=== PATIENT | male | born 1940 | race Caucasian/White ===

== ENCOUNTER → 2018-01-29 | Outpatient (CLI) | payer MEDICARE ==
[2018-01-29 13:46] LABS: BASO % 0.8 %; BASO ABS # 0.05 K/uL (0-0.2); EOS % 1.2 %; EOS ABS # 0.08 K/uL (0-0.5); HEMATOCRIT 45.8 % (42-52); HEMOGLOBIN 15.7 g/dL (14.0-18.0); IG# 0.01 K/uL (0.00-0.02); LYMPH % 26.2 %; LYMPH ABS # 1.72 K/uL (1.2-3.4); MEAN CELL VOLUME 89.3 fL (80-100); MEAN CORPUSCULAR HEMOGLOBIN 30.6 pg (25-34); MEAN CORPUSCULAR HGB CONC 34.3 g/dl (32-36); MEAN PLATELET VOLUME 11.3 fL (7.4-10.4); MONO % 8.2 %; MONO ABS # 0.54 K/uL (0.11-0.59); NEUT % 63.4 %; NEUT ABS # 4.17 K/uL (1.4-6.5); PLATELET COUNT 223 K/uL (130-400); RED CELL DISTRIBUTION WIDTH CV 12.9 % (11.5-14.5); RED CELL DISTRIBUTION WIDTH SD 42.1 fL (36.4-46.3); WHITE BLOOD COUNT 6.57 K/uL (4.8-10.8)
[2018-01-29 14:16] LABS: ALT/SGPT 32 U/L (12-78); AST/SGOT 18 U/L (15-37); BLOOD UREA NITROGEN 10 mg/dl (7-18); CALCIUM 9.2 mg/dl (8.5-10.1); CARBON DIOXIDE 30 mmol/L (21-32); CREATININE 0.94 mg/dl (0.60-1.40); GLUCOSE 111 mg/dl (70-99); POTASSIUM 4.4 mmol/L (3.5-5.1); SODIUM 137 mmol/L (136-145)
[2018-01-29 14:27] LABS: ALKALINE PHOSPHATASE 70 U/L (45-117); CHOLESTEROL 146 mg/dl (0-200); LDL CHOLESTEROL CALCULATED 71 mg/dl; TOTAL PROTEIN 8.1 gm/dl (6.4-8.2)
== END | disposition home or self-care (01) ==
LOC: C.LABBC 10:44
PROVIDERS: ATTEND Internal Medicine
DX: Z00.00 Encounter for general adult medical examination without abnormal findings (principal); F41.1 Generalized anxiety disorder; M17.11 Unilateral primary osteoarthritis, right knee; N40.0 Benign prostatic hyperplasia without lower urinary tract symptoms; R73.01 Impaired fasting glucose; R03.0 Elevated blood-pressure reading, without diagnosis of hypertension

== ENCOUNTER 2024-08-05 15:52 | Observation (INO) ==
[2024-08-05 16:59] LABS: Basophils # (auto) 0.04 K/uL (0.00-0.20); Basophils % (auto) 0.4 %; Eosinophils # (auto) 0.08 K/uL (0.00-0.50); Eosinophils % (auto) 0.7 %; Hematocrit (blood only) 45.1 % (42.0-52.0); Hemoglobin 15.6 g/dl (14.0-18.0); Immature Granulocytes # (auto) 0.05 K/uL (0.01-0.20); Immature Granulocytes % (auto) 0.5 %; Lymphocytes # (auto) 1.43 K/uL (1.20-3.40); Lymphocytes % (auto) 13.2 %; Mean Corpuscular Hemoglobin 29.2 pg (25.0-34.0); Mean Corpuscular Hgb Conc 34.6 g/dL (32.0-36.0); Mean Corpuscular Volume 84.3 fL (80.0-100.0); Mean Platelet Volume 10.8 fL (9.4-12.4); Monocytes # (auto) 0.75 K/uL (0.11-0.59); Monocytes % (auto) 6.9 %; Neutrophils # (auto) 8.48 K/uL (1.40-6.50); Neutrophils % (auto) 78.3 %; Platelet Count 267 K/uL (130-400); RDW Coefficient of Variation 12.5 % (11.5-14.5); RDW Standard Deviation 38.3 fL (36.4-46.3); Red Blood Count 5.35 M/uL (4.70-6.10); White Blood Count 10.83 K/ul (4.8-10.8)
[2024-08-05 17:17] LABS: Albumin Globulin Ratio 1.3 (0.9-2); Albumin Level 4.3 gm/dl (3.4-5.0); BUN Creatinine Ratio 24.7 (10-20); Bilirubin,Total 0.8 mg/dl (0.2-1.0); Calcium 9.9 mg/dl (8.6-10.3); Creatinine Clr Calc Pharmacy 83.6 ml/min; Est GFR (African American) 95.9 ml/min; Est GFR (Non-African American) 82.8 ml/min; Globulin 3.2 gm/dl (2.5-4.0); Potassium 3.8 mmol/L (3.5-5.1); Total Protein 7.5 gm/dl (6.0-8.3)
--- NOTE | 2024-08-05 18:37 | Emergency Department Note ---
Impression & Plan Generalized weakness ED Provider Note NAME: CHRISTINE UNDERWOOD AGE: 84 SEX: Male INFORMANT: Patient and ED PROVIDER(S): Giovanny Campbell MD CHIEF COMPLAINT: Generalized weakness PLAN: Disposition: Admitted Outpatient prescription management: none Referral: None MEDICAL DECISION MAKING: Patient presented emerged from complaining of generalized weakness. He has not been eating well for the last 2 weeks and has had weight loss. He had a nonfocal neurologic examination. His workup revealed a very slight leukocytosis on CBC. His oropharyngeal examination revealed no significant findings concerning for active infection. He had an unremarkable ECG. Chest x-ray was negative. Chemistry panel revealed slight hyperglycemia but nothing significant. Cardiac troponin was negative. Patient had negative orthostatic testing. He was able to ambulate. Lyme testing was negative. Patient and friend were very concerned about his condition. They felt like he was not well to go home. Given his generalized weakness, lack of oral intake, and recent extraction I discussed further management in the hospital as the patient does not feel comfortable going home. Consultation was made with Dr. Henning of the hospitalist service. Patient was evaluated in the ER and admitted for further management. Care/management discussed with: disability manager Level of care consideration(s): After review of the information above and other included data, I feel the patient requires escalation of care to admission Triage Nursing notes: reviewed and agree them. Vital Signs: reviewed and remarkable for no significant abnormalities Additional History obtained from: none Chronic Medical/Social Conditions affecting care: Diabetes Prior/ Outside/ External records reviewed: none Differential Diagnosis: Infection, dehydration, metabolic abnormality, hypo/hyperglycemia, electrolyte disturbance, anemia, hypoxia, cardiac sources, intracerebral event, toxicologic, neurologic, as well as other pathologies. Diagnostics, independently interpreted by me: ECG: Twelve-lead ECG reveals normal sinus rhythm at 92 beats per minute. No evidence of pericarditis, ischemia, ectopy, or dysrhythmia. Cardiac Monitoring: Cardiac monitoring ordered by me: The patient was placed on continuous cardiac monitoring and observed. It revealed a normal sinus rhythm at 76 beats per minute without ectopy or evidence of dysrhythmia. Medical decision rules: none Imaging studies: Chest x-ray. Findings: A chest x-ray was performed and revealed no pneumothorax, effusion, infiltrate, pulmonary edema, free air under the diaphragm, or wide mediastinum. Impression: No acute disease. HPI: 84 year old Male arrives for evaluation of weakness. This started over 2 weeks ago and is worsening. The patient also notes the following associated symptoms, poor appetite, weight loss. Been going on since dealing with an abscessed upper tooth on the right. Was on abx. The patient has found relieving factors. Current pain is rated as mild and improved from the extraction. Pt denies LOC, headache, fevers, chills, diaphoresis, visual changes, neck pain, chest pain, breathing difficulties, nausea, vomiting, abdominal pain, back pain, melena, hematochezia, urinary symptoms, numbness, lymphadenopathy, rash, or other complaints. . PAST MEDICAL HISTORY: See Below, DM, HTN PAST SURGICAL HISTORY: See Below, SOCIAL HISTORY: See Below, HOME MEDICATIONS: See Below ALLERGIES: See Below VITALS: See Below PHYSICAL EXAMINATION: GENERAL: Awake, tired-appearing, in no distress HENT: Normocephalic, atraumatic. Oropharynx unremarkable. EYES: Normal conjunctiva. Sclera non-icteric. NECK: Inspection normal. Non-tender. Supple. No nuchal rigidity. FROM. No masses. RESPIRATORY: Clear to auscultation. No wheezes. No rales. Normal respiratory effort. CARDIAC: Normal rate. Normal rhythm. No murmurs. No rubs. Extremities warm and well perfused. Pulses equal. No JVD. GI: Soft, non-distended. No tenderness to palpation. No rebound or guarding. No masses. RECTAL: Deferred. MUSCULOSKELETAL: Atraumatic. Chest examination reveals no tenderness. The back is symmetrical on inspection without obvious abnormality. There is no CVA tenderness to palpation. No joint edema. LOWER EXTREMITIES: Calves are equal size bilaterally and non-tender. No edema. Chronic venous discoloration. NEURO: Normal sensorium. No sensory or motor deficits noted. SKIN: No rash or jaundice noted. PROCEDURES: none CRITICAL CARE: none OBSERVATION NOTE: none Past Med/Surg History Problem List (Updated 08/06/24 @ 01:50 by Giovanny Campbell MD) Generalized weakness (Acute) Weakness Type 2 diabetes mellitus Colon polyps History of colon polyps large intestine benign HTN (hypertension) (Chronic) LVH (left ventricular hypertrophy) (Chronic) Primary osteoarthritis of right knee (Chronic) Anxiety (Chronic) Medical History (Updated 08/06/24 @ 01:50 by Giovanny Campbell MD) History of skin cancer Preoperative examination Tick bite History of neoplasm of uncertain behavior of skin History of rheumatic fever Diastasis, muscle Hypertension Surgical History History of phacoemulsification of cataract of both eyes with intraocular lens implantation History of excision of lesion neck benign History of surgery FINGER SURGERY Family History Father , At age 94 Alzheimer disease Mother Heart disease Sister , Age 64 Lung cancer Tobacco use Denies family history of Ovarian cancer Prostate cancer Diabetes Myocardial infarction Breast cancer Colorectal cancer Hypertension Stroke Social History Smoking Status: Never smoker Tobacco Type: Cigarettes Age Started Using Tobacco: 27; Age Quit Using Tobacco: 45; packs per day: 0.25; Cigarettes Per Day: QUIT >20 YEARS AGO; Second Hand Exposure: No; Do You Dip or Chew Tobacco: No; Hx Alcohol Use: No Hx Substance Use: No Preferred Language: Bulgarian Communication Ability: Effective Visual Impairment: Limited Hearing Ability: Hard of Hearing Certified Green Building Engineer Required: No Beliefs That Will Affect Care: None marital status: Current Living Situation: Spouse current occupational status: retired How many Children do You have: 1 Feels Safe at Home: Yes Safety Concerns: Feels Safe At This Time Childhood Exposure to Second-Hand Smoke: No Diet: regular caffeine: Yes Dental Care, Regularly: Yes Physical Activity Frequency: Daily Physical Activity Frequency Comment: Regularly Seatbelt Use: always Sunscreen Use: No Assistive Devices: Denture - Upper, Denture - Lower and Glasses Allergies Allergies Allergy/AdvReac Type Severity Reaction Status Date / Time No Known Allergies Allergy Verified 08/01/24 13:23 Home Meds Home Medications Medication Instructions Recorded Confirmed multivitamin 1 cap PO DAILY 01/06/19 08/01/24 cetirizine 10 mg capsule (Zyrtec) 10 mg PO DAILY PRN 12/11/23 08/01/24 amlodipine 5 mg tablet 5 mg PO DAILY 08/06/24 08/06/24 Previous Rx's Medication Instructions Recorded escitalopram oxalate 10 mg tablet See Rx Instructions .Route 07/30/24 .COMPLEX #90 tabs amoxicillin 875 mg-potassium 1 tab PO BID 5 days #10 tabs 08/01/24 clavulanate 125 mg tablet metformin 500 mg tablet,extended See Rx Instructions .Route 08/05/24 release 24 hr .COMPLEX #90 tabs Results & Data (ED) Vital Signs Vital Signs - 24 hr 08/05/24 16:13 08/05/24 18:21 08/05/24 19:12 Temperature 37.0 C Temperature Source Oral Pulse Rate - Lying 78 Pulse Rate - Sitting 82 Pulse Rate - Standing 87 Pulse Rate 92 H Pulse Rate [Apical] 70 Pulse Rhythm Regular Pulse Strength Normal Respiratory Rate 18 Respiratory Effort / Characteristics Non-Labored Respiratory Depth Normal Respiratory Pattern Regular Blood Pressure - Lying 125/73 Blood Pressure - Sitting 151/88 H Blood Pressure- Standing 152/89 H Blood Pressure 125/88 Blood Pressure [Right Arm] 122/76 Blood Pressure Mean 100 Blood Pressure Mean [Right Arm] 91 Blood Pressure Position Sitting Pulse Oximetry 98 94 Oxygen Delivery Method Room Air Room Air Sepsis Recent Fever Within 48 Hours Yes Sepsis New/Unexplained Change in Mental Status No Sepsis Action Taken by Nursing No Action Required 08/05/24 19:14 08/05/24 19:30 08/05/24 20:30 Temperature Temperature Source Pulse Rate - Lying Pulse Rate - Sitting Pulse Rate - Standing Pulse Rate Pulse Rate [Apical] 78 Pulse Rhythm Pulse Strength Respiratory Rate 18 17 Respiratory Effort / Characteristics Respiratory Depth Respiratory Pattern Blood Pressure - Lying Blood Pressure - Sitting Blood Pressure- Standing Blood Pressure Blood Pressure [Right Arm] 142/80 H 135/78 Blood Pressure Mean Blood Pressure Mean [Right Arm] 100 97 Blood Pressure Position Pulse Oximetry 94 92 Oxygen Delivery Method Room Air Room Air Room Air Sepsis Recent Fever Within 48 Hours Sepsis New/Unexplained Change in Mental Status Sepsis Action Taken by Nursing 08/05/24 21:30 Temperature Temperature Source Pulse Rate - Lying Pulse Rate - Sitting Pulse Rate - Standing Pulse Rate Pulse Rate [Apical] 78 Pulse Rhythm Pulse Strength Respiratory Rate 18 Respiratory Effort / Characteristics Non-Labored Respiratory Depth Normal Respiratory Pattern Regular Blood Pressure - Lying Blood Pressure - Sitting Blood Pressure- Standing Blood Pressure Blood Pressure [Right Arm] 140/87 Blood Pressure Mean Blood Pressure Mean [Right Arm] 104 Blood Pressure Position Pulse Oximetry 93 Oxygen Delivery Method Room Air Sepsis Recent Fever Within 48 Hours Sepsis New/Unexplained Change in Mental Status Sepsis Action Taken by Nursing Laboratory Data 08/05/24 16:41 08/05/24 16:41 Lab Results 08/05/24 08/05/24 Range/Units 16:41 19:17 WBC 10.83 H (4.8-10.8) K/ul RBC 5.35 (4.70-6.10) M/uL Hgb 15.6 (14.0-18.0) g/dl Hct 45.1 (42.0-52.0) % MCV 84.3 (80.0-100.0) fL MCH 29.2 (25.0-34.0) pg MCHC 34.6 (32.0-36.0) g/dL RDW Std Deviation 38.3 (36.4-46.3) fL RDW Coeff of Wero 12.5 (11.5-14.5) % Plt Count 267 (130-400) K/uL MPV 10.8 (9.4-12.4) fL Immature Gran % (Auto) 0.5 % Neut % (Auto) 78.3 % Lymph % (Auto) 13.2 % Butts % (Auto) 6.9 % Eos % (Auto) 0.7 % Baso % (Auto) 0.4 % Neut # (Auto) 8.48 H (1.40-6.50) K/uL Lymph # (Auto) 1.43 (1.20-3.40) K/uL Butts # (Auto) 0.75 H (0.11-0.59) K/uL Eos # (Auto) 0.08 (0.00-0.50) K/uL Baso # (Auto) 0.04 (0.00-0.20) K/uL Immature Gran # (Auto) 0.05 (0.01-0.20) K/uL Sodium 140 (136-145) mmol/L Potassium 3.8 (3.5-5.1) mmol/L Chloride 103 (98-107) mmol/L Carbon Dioxide 29 (21-32) mmol/L Anion Gap 8 (3-11) BUN 20 (6-23) mg/dl Creatinine 0.81 (0.6-1.4) mg/dl Est Cr Clr Drug Dosing 83.6 ml/min Est GFR ( Amer) 95.9 ml/min Est GFR (Non-Af Amer) 82.8 ml/min BUN/Creatinine Ratio 24.7 H (10-20) Glucose 143 H (70-99(Fasting)) mg/dl Calcium 9.9 (8.6-10.3) mg/dl Magnesium 2.1 (1.7-2.4) mg/dl Total Bilirubin 0.8 (0.2-1.0) mg/dl AST 23 (13-39) U/L ALT 38 (7-52) U/L Alkaline Phosphatase 47 (34-104) U/L Troponin I High Sens 3.5 (0-20) pg/ml Total Protein 7.5 (6.0-8.3) gm/dl Albumin 4.3 (3.4-5.0) gm/dl Globulin 3.2 (2.5-4.0) gm/dl Albumin/Globulin Ratio 1.3 (0.9-2) Adenovirus (PCR) Not Detected (NotDetected) B. pertussis DNA (PCR) Not Detected (NotDetected) B.parapertussis DNA PCR Not Detected (NotDetected) Lyme Disease Screen Negative (Negative) C. pneumoniae DNA (PCR) Not Detected (NotDetected) Coronavirus OC43 (PCR) Not Detected (NotDetected) Coronavirus HKU1 (PCR) Not Detected (NotDetected) Coronavirus 229E (PCR) Not Detected (NotDetected) SARS-CoV-2 (PCR) Not Detected (NotDetected) Coronavirus NL63 (PCR) Not Detected (NotDetected) Human Metapneumovir PCR Not Detected (NotDetected) Influenza Type A (PCR) Not Detected (NotDetected) Influenza Type B (PCR) Not Detected (NotDetected) M. pneumoniae (PCR) Not Detected (NotDetected) Parainfluenza 1 (PCR) Not Detected (NotDetected) Parainfluenza 2 (PCR) Not Detected (NotDetected) Parainfluenza 3 (PCR) Not Detected (NotDetected) Parainfluenza 4 (PCR) Not Detected (NotDetected) RSV (PCR) Not Detected (NotDetected) Entero/Rhino (PCR) Not Detected (NotDetected) Administered Medications Lactated Ringer's (Lr) 1,000 mls @ 80 mls/hr IV .[id number] [facility] Stop: 08/07/24 00:44 Last Admin: 08/05/24 23:36 Dose: 80 mls/hr Documented By: TONG Discontinued Medications Sodium Chloride (Nss) 1,000 mls @ 999 mls/hr IV .Q1H1M ONE Stop: 08/05/24 19:37 Last Infusion: 08/05/24 21:04 Dose: Infused Documented By: Admin: 08/05/24 18:46 Dose: 999 mls/hr Documented By: CARMEN Sodium Chloride (Nss) 1,000 mls @ 125 mls/hr IV .Q8H JUSTIN Stop: 09/04/24 18:44 Last Infusion: 08/05/24 23:40 Dose: Infused Documented By: Infusion: 08/05/24 23:39 Dose: 0 mls/hr Documented By: Admin: 08/05/24 21:04 Dose: 125 mls/hr Documented By: DELTA Ioversol (Optiray 320 100ml) 93 ml IV ONCE ONE Stop: 08/05/24 22:30 Last Admin: 08/05/24 22:29 Dose: 93 ml Documented By: SHANNON Imaging Data Radiologist's Impression: Face CT 08/05/24 22:02 Exam(s): CT FACIAL With Contrast IV Amt: 92 cc opti 320 EXAM: CT Head and Maxillofacial With Intravenous Contrast CLINICAL HISTORY: Reason for exam: malaise s/p right maxillary tooth extraction. TECHNIQUE: Axial computed tomography images of the head/brain and face with intravenous contrast. Automated exposure control was utilized for the study. A dose lowering technique was utilized adhering to the principles of ALARA. CONTRAST: Patient received 92 cc opti 320 of IV contrast COMPARISON: No relevant prior studies available. FINDINGS: Brain: Unremarkable. No hemorrhage. No edema. Normal enhancement. Ventricles: Unremarkable. No ventriculomegaly. Bones/joints: No acute fracture. There is a recent extraction of tooth #4. 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 Soft tissues: Unremarkable. Sinuses: Chronic right ethmoid sinusitis. No acute sinusitis. Mastoid air cells: Unremarkable as visualized. No mastoid effusion. Orbits: Unremarkable as visualized. IMPRESSION: Status post extraction of tooth #4 with expected postsurgical changes. 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 Recommend MRI of the cervical spine to evaluate for myelopathy. Electronically signed by: Mayte Hagen MD 08/06/24 00:58 AM Discharge Plan Visit Data Chief Complaint: Illness Stated Complaint: TOOTH REMOVAL,INFECTION ED Provider: Giovanny Campbell Discharge Problem: Generalized weakness Patient Disposition: Admitted As Inpatient Discharge Instructions Interventions: ED Discharge Assessment Last Done: 08/05/24 23:00
[2024-08-05] MEDS: SODIUM CHLORIDE 0.9% 1,000 ML IV ONE (18:46)
[2024-08-05 18:55] LABS: Magnesium 2.1 mg/dl (1.7-2.4)
[2024-08-05 19:03] LABS: Troponin I High Sensitivity 3.5 pg/ml (0-20)
[2024-08-05 20:44] LABS: Adenovirus PCR Not Detected (NotDetected); Bordetella parapertussis PCR Not Detected (NotDetected); Bordetella pertussis PCR Not Detected (NotDetected); Chlamydia pneumoniae PCR Not Detected (NotDetected); Coronavirus 229E PCR Not Detected (NotDetected); Coronavirus CoV-2 (COVID19)PCR Not Detected (NotDetected); Coronavirus HKU1 PCR Not Detected (NotDetected); Coronavirus NL63 PCR Not Detected (NotDetected); Coronavirus OC43PCR Not Detected (NotDetected); Human Metapneumovirus PCR Not Detected (NotDetected); Influenza A PCR Not Detected (NotDetected); Influenza B PCR Not Detected (NotDetected); Mycoplasma pneumoniae PCR Not Detected (NotDetected); Parainfluenza Virus 1 PCR Not Detected (NotDetected); Parainfluenza Virus 2 PCR Not Detected (NotDetected); Parainfluenza Virus 3 PCR Not Detected (NotDetected); Parainfluenza Virus 4 PCR Not Detected (NotDetected); Respiratory Syncytial VirusPCR Not Detected (NotDetected); Rhinovirus/Enterovirus PCR Not Detected (NotDetected)
[2024-08-05] MEDS: SODIUM CHLORIDE 0.9% 1,000 ML IV SCH (21:04)
--- NOTE | 2024-08-05 22:06 | History & Physical Report ---
Date of Service August 05, 2024 Assessment & Plan (1) Weakness: Plan: 84yo male with recent dental infection s/p antibiotics, s/p tooth extraction presenting from home with 2 weeks of progressive generalized weakness and decreased oral intake. Unclear etiology. Patient with mild leukocytosis with neutrophil predominance. Remainder of workup is unremarkable. -Observation to medical -Check CT face - ?infection or complication from recent extraction -Check UA -Gentle hydration with LR at 80mL/hr (2) Type 2 diabetes mellitus: Plan: Chronic -Check HgbA1C -ISS - goal blood sugar 110 - 140 (3) HTN (hypertension): Plan: Chronic -Continue Amlodipine History of Present Illness Chief Complaint: weakness, poor appetite and decreased oral intake Primary Care Provider: DO Yomi Garcia Edmundo is an 84yo male with history of HTN, DM presenting with poor appetite and decreased oral intake. Patient reports that earlier this month 07/26/24 he lost a filling and developed a toothache right maxillary tooth. He was taking antibiotics - Augmentin. Had an extraction on 07/28/24. He had severe pain in his face, jaw, head and neck as well as significant swelling following the extraction. His symptoms have been steadily improving - still has some pain in his face. He reports no pain at the extraction site. Over the last two weeks he has been experiencing poor appetite and decreased oral intake. He reports that he feels a little bit hungry but does not have the energy to eat. He is able to chew without pain or difficulty and reports that he is able to swallow without dysphagia or odynophagia. No abdominal pain, nausea, vomiting or diarrhea. He has only been eating pudding and applesauce and Ensure over the last two weeks. Also with progressive generalized weakness, chills. He reports he is having a difficult time taking care of himself. Prior to his dental infection he was active and independent - he lives at home with his elderly and cares for her and his dog. He also manages the yard and property. He denies headache, visual changes or pain with eye movement at present (he did have some pain with eye movement earlier in the week). He denies throat pain or swelling or difficulty swallowing. No neck stiffness. No chest pain, palpitations, cough, SOB, abdominal pain, nausea, vomiting or diarrhea. No urinary complaints. Allergies Allergy/AdvReac Type Severity Reaction Status Date / Time No Known Allergies Allergy Verified 08/01/24 13:23 Home Medications Medication Instructions Recorded Confirmed Type multivitamin 1 cap PO DAILY 01/06/19 08/01/24 History cetirizine 10 mg capsule (Zyrtec) 10 mg PO DAILY PRN 12/11/23 08/01/24 History escitalopram oxalate 10 mg tablet See Rx Instructions .Route 07/30/24 08/06/24 Rx .COMPLEX #90 tabs amoxicillin 875 mg-potassium 1 tab PO BID 5 days #10 tabs 08/01/24 08/01/24 Rx clavulanate 125 mg tablet metformin 500 mg tablet,extended See Rx Instructions .Route 08/05/24 08/06/24 Rx release 24 hr .COMPLEX #90 tabs amlodipine 5 mg tablet 5 mg PO DAILY 08/06/24 08/06/24 History Past Med/Surg History Problem List (Updated 08/06/24 @ 00:46 by Salma Henning DO) Weakness Type 2 diabetes mellitus Colon polyps History of colon polyps large intestine benign HTN (hypertension) (Chronic) LVH (left ventricular hypertrophy) (Chronic) Primary osteoarthritis of right knee (Chronic) Anxiety (Chronic) Medical History (Updated 08/06/24 @ 00:46 by Salma Henning DO) History of skin cancer Preoperative examination Tick bite History of neoplasm of uncertain behavior of skin History of rheumatic fever Diastasis, muscle Hypertension Surgical History History of phacoemulsification of cataract of both eyes with intraocular lens implantation History of excision of lesion neck benign History of surgery FINGER SURGERY Family History Father , At age 94 Alzheimer disease Mother Heart disease Sister , Age 64 Lung cancer Tobacco use Denies family history of Ovarian cancer Prostate cancer Diabetes Myocardial infarction Breast cancer Colorectal cancer Hypertension Stroke Social History Smoking Status: Never smoker Tobacco Type: Cigarettes Age Started Using Tobacco: 27; Age Quit Using Tobacco: 45; packs per day: 0.25; Cigarettes Per Day: QUIT >20 YEARS AGO; Second Hand Exposure: No; Do You Dip or Chew Tobacco: No; Hx Alcohol Use: No Hx Substance Use: No Preferred Language: Mongolian Communication Ability: Effective Visual Impairment: Limited Hearing Ability: Hard of Hearing Authorizer Required: No Beliefs That Will Affect Care: None marital status: Current Living Situation: Spouse current occupational status: retired How many Children do You have: 1 Feels Safe at Home: Yes Safety Concerns: Feels Safe At This Time Childhood Exposure to Second-Hand Smoke: No Diet: regular caffeine: Yes Dental Care, Regularly: Yes Physical Activity Frequency: Daily Physical Activity Frequency Comment: Regularly Seatbelt Use: always Sunscreen Use: No Assistive Devices: Denture - Upper, Denture - Lower and Glasses Review of Systems Review of Systems: All systems reviewed & are unremarkable except as noted in HPI & below Physical Exam Physical Exam: General: patient resting comfortably, NAD, non-toxic in appearance, AA&O x 4 Skin: warm, dry, intact, no rashes or lesions HEENT: NC/AT, PERRL, EOMI, anicteric sclera, conjunctiva without injection, external ear normal to inspection and nontender, nares patent, moist mucus membranes, dentition intact, no oropharyngeal lesions, neck supple, trachea midline, no LAD, no thyromegaly, no JVD Heart: +S1/S2, regular, no m/r/g Lungs: equal air entry bilaterally, no rales/rhonchi/wheezes Abd: +BS, soft, NT/ND, no masses/organomegaly/ascites Ext: warm, 2+ pulses in UE/LE bilaterally, no clubbing/cyanosis or edema Neuro: nonfocal, patient AA&O x 4, speech intact, no facial droop, moving all extremities on command with equal strength 5/5 Results & Data Results & Data Vital Signs (Past 12 Hours) Vital Signs Temp Pulse Pulse Resp BP BP Pulse Ox 08/05/24 21:30 78 18 140/87 93 08/05/24 20:30 78 17 135/78 92 08/05/24 19:30 18 142/80 H 94 08/05/24 19:14 08/05/24 18:21 70 122/76 94 08/05/24 16:13 37.0 C 92 H 18 125/88 98 O2 Del Method 08/05/24 21:30 Room Air 08/05/24 20:30 Room Air 08/05/24 19:30 Room Air 08/05/24 19:14 Room Air 08/05/24 18:21 Room Air 08/05/24 16:13 Room Air Laboratory Results Laboratory Results WBC 10.83 K/ul (4.8-10.8) H 08/05/24 16:41 RBC 5.35 M/uL (4.70-6.10) 08/05/24 16:41 Hgb 15.6 g/dl (14.0-18.0) 08/05/24 16:41 Hct 45.1 % (42.0-52.0) 08/05/24 16:41 MCV 84.3 fL (80.0-100.0) 08/05/24 16:41 MCH 29.2 pg (25.0-34.0) 08/05/24 16:41 MCHC 34.6 g/dL (32.0-36.0) 08/05/24 16:41 RDW Std Deviation 38.3 fL (36.4-46.3) 08/05/24 16:41 RDW Coeff of Wero 12.5 % (11.5-14.5) 08/05/24 16:41 Plt Count 267 K/uL (130-400) 08/05/24 16:41 MPV 10.8 fL (9.4-12.4) 08/05/24 16:41 Immature Gran % (Auto) 0.5 % 08/05/24 16:41 Neut % (Auto) 78.3 % 08/05/24 16:41 Lymph % (Auto) 13.2 % 08/05/24 16:41 [place] % (Auto) 6.9 % 08/05/24 16:41 Eos % (Auto) 0.7 % 08/05/24 16:41 Baso % (Auto) 0.4 % 08/05/24 16:41 Neut # (Auto) 8.48 K/uL (1.40-6.50) H 08/05/24 16:41 Lymph # (Auto) 1.43 K/uL (1.20-3.40) 08/05/24 16:41 [place] # (Auto) 0.75 K/uL (0.11-0.59) H 08/05/24 16:41 Eos # (Auto) 0.08 K/uL (0.00-0.50) 08/05/24 16:41 Baso # (Auto) 0.04 K/uL (0.00-0.20) 08/05/24 16:41 Immature Gran # (Auto) 0.05 K/uL (0.01-0.20) 08/05/24 16:41 Sodium 140 mmol/L (136-145) 08/05/24 16:41 Potassium 3.8 mmol/L (3.5-5.1) 08/05/24 16:41 Chloride 103 mmol/L (98-107) 08/05/24 16:41 Carbon Dioxide 29 mmol/L (21-32) 08/05/24 16:41 Anion Gap 8 (3-11) 08/05/24 16:41 BUN 20 mg/dl (6-23) 08/05/24 16:41 Creatinine 0.81 mg/dl (0.6-1.4) 08/05/24 16:41 Est Cr Clr Drug Dosing 83.6 ml/min 08/05/24 16:41 Est GFR ( Amer) 95.9 ml/min 08/05/24 16:41 Est GFR (Non-Af Amer) 82.8 ml/min 08/05/24 16:41 BUN/Creatinine Ratio 24.7 (10-20) H 08/05/24 16:41 Glucose 143 mg/dl (70-99(Fasting)) H 08/05/24 16:41 POC Glucose 120 mg/dl (70-99) H 08/05/24 23:18 Calcium 9.9 mg/dl (8.6-10.3) 08/05/24 16:41 Phosphorus 2.7 mg/dl (2.5-4.9) 08/05/24 23:40 Magnesium 1.9 mg/dl (1.7-2.4) 08/05/24 23:40 Total Bilirubin 0.8 mg/dl (0.2-1.0) 08/05/24 16:41 AST 23 U/L (13-39) 08/05/24 16:41 ALT 38 U/L (7-52) 08/05/24 16:41 Alkaline Phosphatase 47 U/L (34-104) 08/05/24 16:41 Troponin I High Sens 3.5 pg/ml (0-20) 08/05/24 16:41 Total Protein 7.5 gm/dl (6.0-8.3) 08/05/24 16:41 Albumin 4.3 gm/dl (3.4-5.0) 08/05/24 16:41 Globulin 3.2 gm/dl (2.5-4.0) 08/05/24 16:41 Albumin/Globulin Ratio 1.3 (0.9-2) 08/05/24 16:41 TSH 0.515 uIu/ml (0.300-4.500) 08/05/24 23:40 Adenovirus (PCR) Not Detected (NotDetected) 08/05/24 19:17 B. pertussis DNA (PCR) Not Detected (NotDetected) 08/05/24 19:17 B.parapertussis DNA PCR Not Detected (NotDetected) 08/05/24 19:17 Lyme Disease Screen Negative (Negative) 08/05/24 16:41 C. pneumoniae DNA (PCR) Not Detected (NotDetected) 08/05/24 19:17 Coronavirus OC43 (PCR) Not Detected (NotDetected) 08/05/24 19:17 Coronavirus HKU1 (PCR) Not Detected (NotDetected) 08/05/24 19:17 Coronavirus 229E (PCR) Not Detected (NotDetected) 08/05/24 19:17 SARS-CoV-2 (PCR) Not Detected (NotDetected) 08/05/24 19:17 Coronavirus NL63 (PCR) Not Detected (NotDetected) 08/05/24 19:17 Human Metapneumovir PCR Not Detected (NotDetected) 08/05/24 19:17 Influenza Type A (PCR) Not Detected (NotDetected) 08/05/24 19:17 Influenza Type B (PCR) Not Detected (NotDetected) 08/05/24 19:17 M. pneumoniae (PCR) Not Detected (NotDetected) 08/05/24 19:17 Parainfluenza 1 (PCR) Not Detected (NotDetected) 08/05/24 19:17 Parainfluenza 2 (PCR) Not Detected (NotDetected) 08/05/24 19:17 Parainfluenza 3 (PCR) Not Detected (NotDetected) 08/05/24 19:17 Parainfluenza 4 (PCR) Not Detected (NotDetected) 08/05/24 19:17 RSV (PCR) Not Detected (NotDetected) 08/05/24 19:17 Entero/Rhino (PCR) Not Detected (NotDetected) 08/05/24 19:17 Diagnostic Findings CXR per my interpretation with no obvious edema, infiltrate or pneumothorax ECG Additional Comments: EKG with NSR at 92bpm, normal axis, JF=745, QRS=94, MMb=990, no acute ischemic changes PG Care Time/CCT Total # of Minutes Spent Total Time Spent with Patient: Total time spent is greater than 50% in coordination of care (as documented) at patient's floor/unit and/or counseling patient: Coding Level of Care Code 55364 INT INP/OBS CARE 2/55MIN Diagnoses Weakness R53.1 Type 2 diabetes mellitus E11.9 Essential hypertension I10 Hypertension type: essential hypertension (3) HTN (hypertension) Hypertension type: essential hypertension Qualified Code(s): I10 - Essential (primary) hypertension
[2024-08-05] MEDS: OPTIRAY 320 100ml IV ONE (22:29)
[2024-08-05] MEDS ORDERED: CARBOHYDRATES FOR HYPOGLYCEMIA PO PRN (23:20)
[2024-08-05] MEDS ORDERED: ONDANSETRON INJ 2 MG/ML 2 ML VIAL IV PRN (23:20)
[2024-08-05] MEDS ORDERED: GLUCAGON FOR INJ 1 MG VIAL SQ PRN (23:20)
[2024-08-05] MEDS ORDERED: GLUCOSE 40% GEL 15 GM TUBE PO PRN (23:20)
[2024-08-05] MEDS ORDERED: GLUCOSE 10 TAB/TUBE PO PRN (23:20)
[2024-08-05] MEDS ORDERED: DEXTROSE 50% 50 ML SYRINGE IV PRN (23:20)
[2024-08-05] MEDS: LACTATED RINGER'S 1,000 ML IV SCH (23:36)
[2024-08-06 00:19] LABS: Magnesium 1.9 mg/dl (1.7-2.4); Phosphorus 2.7 mg/dl (2.5-4.9)
[2024-08-06 00:35] LABS: Thyroid Stimulating Hormone 0.515 uIu/ml (0.300-4.500)
--- NOTE | 2024-08-06 00:58 | CT Scan Report ---
Exam(s): CT FACIAL With Contrast IV Amt: 92 cc opti 320 EXAM: CT Head and Maxillofacial With Intravenous Contrast CLINICAL HISTORY: Reason for exam: malaise s/p right maxillary tooth extraction. TECHNIQUE: Axial computed tomography images of the head/brain and face with intravenous contrast. Automated exposure control was utilized for the study. A dose lowering technique was utilized adhering to the principles of ALARA. CONTRAST: Patient received 92 cc opti 320 of IV contrast COMPARISON: No relevant prior studies available. FINDINGS: Brain: Unremarkable. No hemorrhage. No edema. Normal enhancement. Ventricles: Unremarkable. No ventriculomegaly. Bones/joints: No acute fracture. There is a recent extraction of tooth #4. 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 Soft tissues: Unremarkable. Sinuses: Chronic right ethmoid sinusitis. No acute sinusitis. Mastoid air cells: Unremarkable as visualized. No mastoid effusion. Orbits: Unremarkable as visualized. IMPRESSION: Status post extraction of tooth #4 with expected postsurgical changes. 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 Recommend MRI of the cervical spine to evaluate for myelopathy. Electronically signed by: Mayte Hagen MD 08/06/24 00:58 AM
[2024-08-06 02:59] LABS: Appearance Urine Clear (Clear); Bilirubin Urine Negative (Negative); Blood Urine Negative (Negative); Color Urine Yellow; Glucose Urine UA Negative (Negative); Ketones Urine Negative (Negative); Leukocyte Esterase Urine Negative (Negative); Nitrite Urine Negative (Negative); Protein Urine Negative (Negative); Specific Gravity Urine > 1.045 (1.000-1.030); Urobilinogen Urine Negative (Negative); pH Urine 5.5 (4.5-7.5)
--- NOTE | 2024-08-06 07:31 | XRay Report ---
XR chest 1V portable HISTORY: weakness COMPARISON: Chest 10/23/2018. FINDINGS: There are low lung volumes. No pneumothorax. No pleural effusions. No focal lung consolidat ions to suggest a pneumonia. No evidence for pulmonary edema. A few bibasilar linear densities favor subsegmental atelectasis. The cardiac silhouette is borderline enlarged. No acute fractures. IMPRESSION: No acute process. ACT 112: Negative or not required by law. Electronically signed by: Hector Granados M.D. 08/06/2024 7:30 AM
[2024-08-06 07:55] LABS: Estimated Average Glucose 169 mg/dl; Hemoglobin A1C 7.5 % (4.5-5.6)
[2024-08-06] MEDS: ESCITALOPRAM OXALATE 10 MG TAB PO SCH (08:14)
[2024-08-06] MEDS: amLODIPine BESYLATE 5 MG TAB PO SCH (08:14)
[2024-08-06] MEDS: INSULIN ASPART PER UNIT CHARGE SC SCH (08:18)
[2024-08-06 08:51] LABS: Hematocrit (blood only) 40.9 % (42.0-52.0); Mean Corpuscular Hemoglobin 28.6 pg (25.0-34.0); Mean Corpuscular Hgb Conc 34.2 g/dL (32.0-36.0); Mean Corpuscular Volume 83.6 fL (80.0-100.0); Mean Platelet Volume 10.5 fL (9.4-12.4); Platelet Count 252 K/uL (130-400); RDW Coefficient of Variation 12.5 % (11.5-14.5); RDW Standard Deviation 37.9 fL (36.4-46.3); Red Blood Count 4.89 M/uL (4.70-6.10); White Blood Count 8.69 K/ul (4.8-10.8)
[2024-08-06 08:57] LABS: Creatinine Clr Calc Pharmacy 92.2 ml/min; Est GFR (African American) 99.6 ml/min; Est GFR (Non-African American) 85.9 ml/min
--- NOTE | 2024-08-06 12:29 | Hospitalist Progress Note ---
Date of Service August 06, 2024 Assessment & Plan (1) Weakness: Plan: 84yo male with recent dental infection s/p antibiotics, s/p tooth extraction presenting from home with 2 weeks of progressive generalized weakness and decreased oral intake. Patient with mild leukocytosis with neutrophil predominance. Remainder of workup is unremarkable. suspect symptoms may be related to due PO intake from recent tooth extraction. -Observation to medical -CT face reviewed - s/p extraction of tooth #4 w/ expected post-surgical changes -UA reviewed - negative -Tick panel reviewed - negative -CBC/BMP reviewed 08/06 - stable -Gentle hydration with LR at 80mL/hr (2) Type 2 diabetes mellitus: Plan: Chronic -hgb A1c 7.5% -ISS - goal blood sugar 110 - 140 (3) HTN (hypertension): Plan: Chronic -Continue Amlodipine Plan Anticipate discharge home 08/07 Admission and Anticipated Discharge Date Admission Date: August 05, 2024 Subjective Patient seen and examined this morning. Patient reports to be feeling better today. He feels less weak after receiving IVF. Reports he has fatigue. Patient states he cares for his and dog at home. He recently has home help aide with his daughter in law and neighbor but is considering home health for his . Reports he ate better today and reported minimal tooth pain. Results & Data Results & Data Vital Signs (Past 12 Hours) Vital Signs Temp Pulse Resp BP Pulse Ox O2 Del Method 08/06/24 08:22 36.7 C 08/06/24 07:41 36.7 C 75 18 143/81 H 94 Room Air 08/06/24 07:20 Room Air Laboratory Results 08/06/24 08:22 08/06/24 08:22 PG Care Time/CCT Total # of Minutes Spent Total Time Spent with Patient: Total time spent is greater than 50% in coordination of care (as documented) at patient's floor/unit and/or counseling patient: Coding Level of Care Code 21369 SUB INP/OBS CARE 2/35MIN Diagnoses Weakness R53.1 Type 2 diabetes mellitus E11.9 Essential hypertension I10 Hypertension type: essential hypertension (3) HTN (hypertension) Hypertension type: essential hypertension Qualified Code(s): I10 - Essential (primary) hypertension
[2024-08-06] MEDS: ACETAMINOPHEN 325 MG TAB PO PRN (18:00)
--- NOTE | 2024-08-07 05:57 | Electrocardiogram Report ---
Test Reason : Blood Pressure : */* mmHG Vent. Rate : 92 BPM Atrial Rate : 92 BPM P-R Int : 134 ms QRS Dur : 94 ms QT Int : 382 ms P-R-T Axes : -9 10 -22 degrees QTcB Int : 472 ms Normal sinus rhythm Normal ECG When compared with ECG of 23-Oct-2018 09:35, QT has lengthened Confirmed by Joce Carey ([id number]) on 08/07/2024 5:56:52 AM Referred By: REFERRED SELF Confirmed By: Joce Carey
[2024-08-07 07:51] VITALS: BP 149/84; RESP 16; TEMP 97.7; O2SAT 94
[2024-08-07 08:33] LABS: Hematocrit (blood only) 41.6 % (42.0-52.0); Hemoglobin 13.9 g/dl (14.0-18.0); Mean Corpuscular Hemoglobin 28.3 pg (25.0-34.0); Mean Corpuscular Hgb Conc 33.4 g/dL (32.0-36.0); Mean Corpuscular Volume 84.6 fL (80.0-100.0); Mean Platelet Volume 10.7 fL (9.4-12.4); Platelet Count 240 K/uL (130-400); RDW Coefficient of Variation 12.5 % (11.5-14.5); RDW Standard Deviation 38.2 fL (36.4-46.3); Red Blood Count 4.92 M/uL (4.70-6.10); White Blood Count 6.77 K/ul (4.8-10.8)
[2024-08-07 08:45] LABS: BUN Creatinine Ratio 18.1 (10-20); Calcium 8.8 mg/dl (8.6-10.3); Creatinine Clr Calc Pharmacy 94.7 ml/min; Est GFR (African American) 100.7 ml/min; Est GFR (Non-African American) 86.9 ml/min; Potassium 3.8 mmol/L (3.5-5.1)
--- NOTE | 2024-08-07 09:47 | Discharge Summary ---
Discharge Summary Date of Service August 07, 2024 Principal Dx & Hospital Course #1 = Principal Diagnosis (1) Weakness: 84yo male with recent dental infection s/p antibiotics, s/p tooth extraction presenting from home with 2 weeks of progressive generalized weakness and decreased oral intake. Patient with mild leukocytosis with neutrophil predominance. Remainder of workup is unremarkable. Suspect symptoms may be related to decreased PO intake from recent tooth extraction. CT face revealed s/p extraction of tooth #4 w/ expected post-surgical changes. UA, tick panel negative. CBC/BMP stable. Patient was given 2L LR at 80ml/hr with improvement of his weakness and decreased appetite. (2) Type 2 diabetes mellitus: Chronic -hgb A1c 7.5% -resume outpatient medications upon discharge (3) HTN (hypertension): Chronic -Continue Amlodipine Admission HPI Per Admitting Provider oYmi Wyatt is an 84yo male with history of HTN, DM presenting with poor appetite and decreased oral intake. Patient reports that earlier this month 07/26/24 he lost a filling and developed a toothache right maxillary tooth. He was taking antibiotics - Augmentin. Had an extraction on 07/28/24. He had severe pain in his face, jaw, head and neck as well as significant swelling following the extraction. His symptoms have been steadily improving - still has some pain in his face. He reports no pain at the extraction site. Over the last two weeks he has been experiencing poor appetite and decreased oral intake. He reports that he feels a little bit hungry but does not have the energy to eat. He is able to chew without pain or difficulty and reports that he is able to swallow without dysphagia or odynophagia. No abdominal pain, nausea, vomiting or diarrhea. He has only been eating pudding and applesauce and Ensure over the last two weeks. Also with progressive generalized weakness, chills. He reports he is having a difficult time taking care of himself. Prior to his dental infection he was active and independent - he lives at home with his elderly and cares for her and his dog. He also manages the yard and property. He denies headache, visual changes or pain with eye movement at present (he did have some pain with eye movement earlier in the week). He denies throat pain or swelling or difficulty swallowing. No neck stiffness. No chest pain, palpitations, cough, SOB, abdominal pain, nausea, vomiting or diarrhea. No urinary complaints. Discharge Exam Constitutional WD/WN, vitals as above Eyes PERRL, conjunctivae normal, anicteric sclerae Respiratory normal respiratory effort, lungs clear to auscultation Cardiovascular RRR, no murmur, no edema Psychiatric A+Ox3, euthymic affect Discharge Plan Discharge Items Patient Disposition: Home - Self-Care Reason For Visit: GENERALIZED WEAKNESS Discharge Diagnosis: Weakness, dehydration Activity: Resume your previous activity Non-emergency contact: Primary Care Provider Call non-emergency contact if: you have any medication questions and your symptoms worsen Follow-up/Referrals: Mohit Horowitz DO [Primary Care Provider] - 08/11/24 11:00 am (Appointment will be with DAYANARA Dailey) Diet: Carb Consistent or DM2 Diet Texture: Easy to Chew Addtl Attending Provider Instructions: Mr. Wyatt, You were recently hospitalized for weakness. Your workup was essentially benign. Your weakness is likely due to your poor appetite following your tooth extraction. Please see recommendations below regarding your discharge. 1. Please resume previous outpatient medications. 2. Please use nutritional supplements such as boost or ensure to help with your nutritional needs. If you develop any further weakness, fever, chills, chest pain, or shortness of breath please return to the ER for further care. Please follow up with PCP within 1-2 weeks of discharge. Sincerely, Joellen Arvizu PA-C Pending Studies at Discharge: No Stand-Alone Forms: [facility], Smoking Cessation Medications and DC Order Prescriptions: Continued escitalopram oxalate 10 mg tablet See Rx Instructions .ROUTE .COMPLEX Qty: 90 3RF Dose Instruction: TAKE 1 TABLET BY MOUTH AT BEDTIME Rx Instructions: TAKE 1 TABLET BY MOUTH AT BEDTIME metformin 500 mg tablet extended release 24 hr See Rx Instructions .ROUTE .COMPLEX Qty: 90 3RF Dose Instruction: Take 1 tablet by mouth once daily Rx Instructions: Take 1 tablet by mouth once daily Zyrtec 10 mg capsule 10 mg PO DAILY PRN multivitamin Capsule 1 cap PO DAILY amlodipine 5 mg tablet 5 mg PO DAILY Discharge Orders: Discharge Order (Routine); Ordered 08/07/24 Ordered By: Joellen Servin/Other Patient Handouts: Managing Type 2 Diabetes Admission Data Admit Date/Time: 08/05/24 22:05 Attending Provider: Arley Crump Admit Provider: Salma Henning Primary Care Provider: Mohit Horowitz Other Interventions: Discharge Summary Assessment (RN) Last Done: 08/07/24 12:19 Hospital Stay Data Diagnostic Imagining Performed 08/05/24 22:02 CT face [CT facial bones w con] Stat Pending Results Patient Have Any Pending Studies at Discharge: No Discharge Instructions Given to Patient (Per Discharging Provider) Mr. Wyatt, Harish were recently hospitalized for weakness. Your workup was essentially benign. Your weakness is likely due to your poor appetite following your tooth extraction. Please see recommendations below regarding your discharge. 1. Please resume previous outpatient medications. 2. Please use nutritional supplements such as boost or ensure to help with your nutritional needs. If you develop any further weakness, fever, chills, chest pain, or shortness of breath please return to the ER for further care. Please follow up with PCP within 1-2 weeks of discharge. Sincerely, Joellen Arvizu PA-C Supervising Physician Co-Signing Physician Notes During face to face encounter, I obtained a brief physical examination, discussed hospital stay with patient and discharge instructions with patient. I discussed discharge plan of care with ANUJ Arvizu. I reviewed above note and agree with it except for the following: Patient seen for weakness from poor oral intake which may have been from tooth extraction. Nutritional supplement recomended. Total Time Total Time Spent Total Time Spent (In Minutes): 35 Total Time Includes: Examination of the Patient, Discharge Planning and Medication Reconciliation Coding Level of Care Code 84856 INP/OBS DISCH >30 MIN Diagnoses Weakness R53.1 Type 2 diabetes mellitus E11.9 Essential hypertension I10 Hypertension type: essential hypertension
[2024-08-07 12:20] VITALS: PULSE 78
[2024-08-10 07:02] LABS: Babesia microti DNA Not Detected (Not Detected)
== END 2024-08-07 12:27 | disposition home or self-care (01) ==
LOC: ED 15:52 → 3W 15:52 → SUATTDRO 22:05 → 3W 23:00